=== PATIENT | male | born 1990 | race Caucasian/White ===

== ENCOUNTER 2023-01-18 02:20 | Inpatient (IN) | payer MEDICAID ==
[~2023-01-18] VITALS: Ht 152.4 cm; Wt 64.2 kg
[2023-01-18] MEDS ORDERED: MORPHINE SULFATE 4 MG/ML CPJ (NOT FOR IM USE) IV ONE (02:45)
[2023-01-18] MEDS ORDERED: ONDANSETRON HCL 4MG/2ML INJ IV ONE (02:45)
[2023-01-18] MEDS ORDERED: SODIUM CHLORIDE 0.9% 1,000 ML IV ONE (02:45)
[2023-01-18 04:10] LABS: CHLORIDE 106 mEq/L (98-107); INDEX HEMOLYSI 1 (1-3); INDEX ICTERIC 1 (1-4); INDEX LIPEMIC 1 (1-3); SODIUM 138 mEq/L (136-145)
[2023-01-18 04:11] LABS: BASOPHILS % 0.6 % (0.0-2.0); HEMATOCRIT. 24.3 % (42.0-52.0); HEMOGLOBIN. 7.5 g/dL (14.0-18.0); LYMPHOCYTES % 10.9 % (20.0-50.0); MEAN CORPUSCULAR HEMOGLOBIN 25.4 pg (28.0-32.0); MEAN CORPUSCULAR HGB CONC 30.8 g/dL (31.0-37.0); MEAN CORPUSCULAR VOLUME 82.4 fL (80.0-94.0); MEAN PLATELET VOLUME 7.6 fl (7.4-10.4); MONOCYTES % 3.7 % (2.0-8.0); NEUTROPHILS % 79.8 % (40.0-76.0); PLATELET 508 x1000/uL (130-400); RED BLOOD CELL COUNT 2.96 mill/uL (4.7-6.1); RED CELL DISTRIBUTION WIDTH 17.5 % (11.6-14.6); WHITE BLOOD COUNT 16.4 x1000/uL (4.5-11.0)
[2023-01-18 04:16] LABS: ALANINE AMINOTRANSFERASE 24 IU/L (13-61); ALBUMIN 2.1 g/dL (3.4-5.0); ASPARTATE AMINOTRANSFERASE 13 IU/L (15-37); BILIRUBIN TOTAL 0.4 mg/dL (0.1-1.0); CALCIUM 8.1 mg/dL (8.5-10.1); CARBON DIOXIDE 24 mEq/L (21-32); CREATININE 0.6 mg/dL (0.6-1.3); GLUCOSE 128 mg/dL (70-105); PROTEIN TOTAL 7.2 g/dL (6.0-8.3); UREA NITROGEN BLOOD 9 mg/dL (7-21)
[2023-01-18] MEDS ORDERED: ACETAMINOPHEN 325MG TABLET PO NR (04:45)
[2023-01-18 04:46] LABS: TROPONIN I HIGH SENSITIVITY < 4 ng/L (<78)
[2023-01-18] MEDS ORDERED: ONDANSETRON HCL 4MG/2ML INJ IV NR (06:00)
[2023-01-18] MEDS ORDERED: PIPERACILLIN/TAZOBACTAM 3.375GM/50ML PREMIX IV NR (06:00)
[2023-01-18] MEDS ORDERED: MORPHINE SULFATE 4 MG/ML CPJ (NOT FOR IM USE) IV NR (06:00)
[2023-01-18] MEDS ORDERED: VANCOMYCIN 1G PREMIX 200 ML IV NR (06:00)
[2023-01-18] MEDS ORDERED: SODIUM CHLORIDE 0.9% 1,000 ML IV NR (06:15)
[2023-01-18 14:17] VITALS: BP 107/64; PULSE 109; RESP 16; TEMP 98
[2023-01-18 15:10] VITALS: BP 107/74; PULSE 80; RESP 20; TEMP 98
[2023-01-18] MEDS ORDERED: NALOXONE HCL 0.4MG/ML VIAL IV PRN (15:15)
[2023-01-18] MEDS ORDERED: CEFTRIAXONE 1GM PREMIX 50 ML IV NR (16:00)
[2023-01-18] MEDS ORDERED: CEFTRIAXONE 1,000 MG in DEXTROSE 5% WATER 50 ML IV NR (16:30)
[2023-01-18] MEDS: HYDROMORPHONE HCL/PF 2MG/ML CPJ IV PRN ×2 (16:35→21:40)
[2023-01-18 20:00] VITALS: BP 103/56; PULSE 112; RESP 21; TEMP 97.3
[2023-01-18] MEDS ORDERED: IPRATROPIUM/ALBUTEROL 0.5-3(2.5)MG/3ML NEB NEB PRN (22:45)
[2023-01-18] MEDS ORDERED: ACETAMINOPHEN 325MG TABLET PO PRN (22:45)
[2023-01-18] MEDS ORDERED: HYDROCODONE/ACETAMINOPHEN 10/325MG TABLET PO PRN (22:45)
[2023-01-18] MEDS ORDERED: LORAZEPAM 2MG/ML CPJ IV PRN (22:45)
[2023-01-18] MEDS ORDERED: MORPHINE SULFATE 2 MG/ML CPJ (NOT FOR IM USE) IV PRN (22:45)
[2023-01-18] MEDS ORDERED: CEFTRIAXONE 1GM PREMIX 50 ML IV SCH (22:45)
[2023-01-18] MEDS ORDERED: AZITHROMYCIN 500 MG in DEXT 5% WATER 250 ML IV SCH (23:30)
[2023-01-19] VITALS (10 sets, daily range): BP systolic 104–111; BP diastolic 53–64; PULSE 106–117; RESP 16–22; TEMP 97.4–99.1
[2023-01-19] MEDS: HYDROMORPHONE HCL/PF 2MG/ML CPJ IV PRN ×4 (02:09→23:17)
[2023-01-19 06:04] LABS: BASOPHILS % 0.9 % (0.0-2.0); DIFFERENTIAL COMMENT 0; EOSINOPHILS % 8.8 % (0.0-5.0); HEMATOCRIT. 21.4 % (42.0-52.0); MEAN CORPUSCULAR HEMOGLOBIN 25.5 pg (28.0-32.0); MEAN CORPUSCULAR HGB CONC 31.5 g/dL (31.0-37.0); MEAN PLATELET VOLUME 7.5 fl (7.4-10.4); MONOCYTES % 2.6 % (2.0-8.0); NEUTROPHILS % 75.7 % (40.0-76.0); PLATELET 415 x1000/uL (130-400); RED BLOOD CELL COUNT 2.64 mill/uL (4.7-6.1); WHITE BLOOD COUNT 11.3 x1000/uL (4.5-11.0)
[2023-01-19 06:22] LABS: CHLORIDE 101 mEq/L (98-107); INDEX HEMOLYSI 1 (1-3); INDEX ICTERIC 1 (1-4); INDEX LIPEMIC 1 (1-3); POTASSIUM 4.2 mEq/L (3.5-5.1); SODIUM 131 mEq/L (136-145)
[2023-01-19 06:31] LABS: CALCIUM 7.9 mg/dL (8.5-10.1); CARBON DIOXIDE 24 mEq/L (21-32); CREATININE 0.5 mg/dL (0.6-1.3); GLUCOSE 104 mg/dL (70-105); UREA NITROGEN BLOOD 9 mg/dL (7-21)
[2023-01-19 06:36] LABS: HEMOGLOBIN. 6.8 g/dL (14.0-18.0)
[2023-01-19] MEDS: FOLIC ACID 1MG TABLET PO SCH (08:26)
[2023-01-19] MEDS: HYDROMORPHONE HCL 2MG TABLET PO SCH ×2 (13:31→18:00)
[2023-01-19] MEDS: LACTULOSE 20G/30ML UDC PO SCH ×2 (15:12→23:16)
[2023-01-19] MEDS: SODIUM CHLORIDE 0.9% 1,000 ML IV SCH ×2 (15:12→23:17)
[2023-01-19] MEDS ORDERED: CEFTRIAXONE 1,000 MG in DEXTROSE 5% WATER 50 ML IV SCH (16:00)
[2023-01-19] MEDS ORDERED: VANCOMYCIN 1.25GM PMX (XELLIA) 250 ML IV NR (17:00)
[2023-01-19] MEDS: ONDANSETRON HCL 4MG/2ML INJ IV PRN (17:18)
[2023-01-19] MEDS: PIPERACILLIN/TAZOBACTAM 3.375 G in DEXTROSE 5% WATER 50 ML IV SCH (23:18)
[2023-01-20] VITALS: BP 94/57; PULSE 108; RESP 17; TEMP 98.5
[2023-01-20 01:33] LABS: CLARITY URINE CLEAR (CLEAR); COLOR URINE YELLOW (YELLOW); GLUCOSE URINE NEGATIVE (NEGATIVE); KETONES URINE NEGATIVE (NEGATIVE); LEUKOCYTE ESTERASE URINE NEGATIVE (NEGATIVE); NITRITE URINE NEGATIVE (NEGATIVE); OCCULT BLOOD URINE NEGATIVE (NEGATIVE); PH URINE 7.5 (4.5-8.0); PROTEIN URINE NEGATIVE (NEGATIVE); SPECIFIC GRAVITY URINE 1.009 (1.005-1.030)
[2023-01-20 04:00] VITALS: BP 97/61; PULSE 110; RESP 20; TEMP 98.6
[2023-01-20] MEDS: HYDROMORPHONE HCL/PF 2MG/ML CPJ IV PRN ×5 (04:27→22:06)
[2023-01-20] MEDS: LACTULOSE 20G/30ML UDC PO SCH ×3 (06:00→22:00)
[2023-01-20] MEDS ORDERED: VANCOMYCIN 1G PREMIX 200 ML IV SCH (06:00)
[2023-01-20] MEDS: HYDROMORPHONE HCL 2MG TABLET PO SCH ×4 (06:31→18:00)
[2023-01-20] MEDS: PIPERACILLIN/TAZOBACTAM 3.375 G in DEXTROSE 5% WATER 50 ML IV SCH ×2 (06:31→14:06)
[2023-01-20 07:36] LABS: CHLORIDE 103 mEq/L (98-107); INDEX HEMOLYSI 1 (1-3); INDEX ICTERIC 1 (1-4); INDEX LIPEMIC 1 (1-3); POTASSIUM 3.9 mEq/L (3.5-5.1); SODIUM 133 mEq/L (136-145)
[2023-01-20 07:41] LABS: CARBON DIOXIDE 21 mEq/L (21-32); CREATININE 0.5 mg/dL (0.6-1.3); GLUCOSE 121 mg/dL (70-105); UREA NITROGEN BLOOD 6 mg/dL (7-21)
[2023-01-20 07:50] LABS: BASOPHILS % 0.8 % (0.0-2.0); EOSINOPHILS % 7.2 % (0.0-5.0); HEMATOCRIT. 24.5 % (42.0-52.0); MEAN CORPUSCULAR HEMOGLOBIN 26.7 pg (28.0-32.0); MEAN CORPUSCULAR HGB CONC 32.7 g/dL (31.0-37.0); MEAN CORPUSCULAR VOLUME 81.5 fL (80.0-94.0); MEAN PLATELET VOLUME 7.6 fl (7.4-10.4); MONOCYTES % 5.1 % (2.0-8.0); NEUTROPHILS % 75.9 % (40.0-76.0); PLATELET 360 x1000/uL (130-400); RED BLOOD CELL COUNT 3.01 mill/uL (4.7-6.1); RED CELL DISTRIBUTION WIDTH 17.5 % (11.6-14.6); WHITE BLOOD COUNT 9.9 x1000/uL (4.5-11.0)
[2023-01-20 08:00] VITALS: BP 105/65; PULSE 103; RESP 21; TEMP 97.9
[2023-01-20] MEDS: FOLIC ACID 1MG TABLET PO SCH (08:34)
[2023-01-20] MEDS: SODIUM CHLORIDE 0.9% 1,000 ML IV SCH ×2 (08:36→22:00)
[2023-01-20] MEDS ORDERED: IOHEXOL-350 100 ML BOTTLE ONE (11:33)
[2023-01-20 12:00] VITALS: BP 101/56; PULSE 106; RESP 22; TEMP 98.1
[2023-01-20 16:00] VITALS: BP 107/64; PULSE 111; RESP 22; TEMP 98.3
[2023-01-20] MEDS: ONDANSETRON HCL 4MG/2ML INJ IV PRN (17:59)
[2023-01-20 20:00] VITALS: BP 108/60; PULSE 110; RESP 16; TEMP 98.3
[2023-01-20] MEDS: VANCOMYCIN 1.25GM PMX (XELLIA) 250 ML IV SCH (22:07)
[2023-01-21] VITALS: BP 104/64; PULSE 113; RESP 19; TEMP 99.5
[2023-01-21] MEDS: PIPERACILLIN/TAZOBACTAM 3.375 G in DEXTROSE 5% WATER 50 ML IV SCH ×4 (00:03→22:28)
[2023-01-21] MEDS: HYDROMORPHONE HCL/PF 2MG/ML CPJ IV PRN ×6 (01:54→21:14)
[2023-01-21 04:00] VITALS: BP 110/60; PULSE 104; RESP 22; TEMP 99.3
[2023-01-21] MEDS: SODIUM CHLORIDE 0.9% 1,000 ML IV SCH ×2 (04:41→17:38)
[2023-01-21] MEDS: LACTULOSE 20G/30ML UDC PO SCH ×3 (06:00→22:28)
[2023-01-21] MEDS: HYDROMORPHONE HCL 2MG TABLET PO SCH ×2 (06:00)
[2023-01-21 07:41] LABS: CHLORIDE 99 mEq/L (98-107); INDEX HEMOLYSI 1 (1-3); INDEX ICTERIC 1 (1-4); INDEX LIPEMIC 1 (1-3); POTASSIUM 3.9 mEq/L (3.5-5.1); SODIUM 132 mEq/L (136-145)
[2023-01-21 07:49] LABS: CARBON DIOXIDE 24 mEq/L (21-32); CREATININE 0.5 mg/dL (0.6-1.3); GLUCOSE 98 mg/dL (70-105); UREA NITROGEN BLOOD 5 mg/dL (7-21)
[2023-01-21 08:00] VITALS: BP 112/66; PULSE 113; RESP 16; TEMP 98.5
[2023-01-21] MEDS: FOLIC ACID 1MG TABLET PO SCH (08:50)
[2023-01-21] MEDS: VANCOMYCIN 1.25GM PMX (XELLIA) 250 ML IV SCH (08:50)
[2023-01-21 12:00] VITALS: BP 110/62; PULSE 106; RESP 16; TEMP 98.6
[2023-01-21 16:00] VITALS: BP 110/66; PULSE 112; RESP 21; TEMP 98.7
[2023-01-21] MEDS: VANCOMYCIN 750MG PREMIX 150 ML IV SCH (21:05)
[2023-01-22] VITALS (9 sets, daily range): BP systolic 102–116; BP diastolic 57–74; PULSE 105–118; RESP 16–27; TEMP 98.2–99.6
[2023-01-22] MEDS: HYDROMORPHONE HCL/PF 2MG/ML CPJ IV PRN ×8 (00:25→21:23)
[2023-01-22] MEDS: SODIUM CHLORIDE 0.9% 1,000 ML IV SCH ×2 (00:45→12:51)
[2023-01-22] MEDS: VANCOMYCIN 750MG PREMIX 150 ML IV SCH ×3 (06:42→22:52)
[2023-01-22] MEDS: LACTULOSE 20G/30ML UDC PO SCH ×3 (06:42→22:00)
[2023-01-22] MEDS: PIPERACILLIN/TAZOBACTAM 3.375 G in DEXTROSE 5% WATER 50 ML IV SCH ×3 (06:49→21:22)
[2023-01-22 07:36] LABS: INDEX HEMOLYSI 1 (1-3); INDEX ICTERIC 1 (1-4); INDEX LIPEMIC 1 (1-3)
[2023-01-22 07:38] LABS: IRON 61 ug/dL (50-175); TOTAL IRON BINDING CAPACITY 182 ug/dL (250-450)
[2023-01-22 08:08] LABS: INDEX HEMOLYSI 1 (1-3)
[2023-01-22 08:53] LABS: VITAMIN B12 SERUM > 2000.0 pg/mL (211-911)
[2023-01-22] MEDS: FOLIC ACID 1MG TABLET PO SCH (09:19)
[2023-01-22 10:45] LABS: FERRITIN 506 ng/mL (22-322)
[2023-01-22] MEDS: ONDANSETRON HCL 4MG/2ML INJ IV PRN ×2 (12:52→21:22)
[2023-01-22 13:11] LABS: BASOPHILS % 0.6 % (0.0-2.0); EOSINOPHILS % 7.5 % (0.0-5.0); HEMATOCRIT. 24.5 % (42.0-52.0); LYMPHOCYTES % 10.7 % (20.0-50.0); MEAN CORPUSCULAR HEMOGLOBIN 26.5 pg (28.0-32.0); MEAN CORPUSCULAR HGB CONC 32.6 g/dL (31.0-37.0); MEAN CORPUSCULAR VOLUME 81.4 fL (80.0-94.0); MEAN PLATELET VOLUME 7.4 fl (7.4-10.4); MONOCYTES % 7.9 % (2.0-8.0); NEUTROPHILS % 73.3 % (40.0-76.0); PLATELET 283 x1000/uL (130-400); RED BLOOD CELL COUNT 3.02 mill/uL (4.7-6.1); RED CELL DISTRIBUTION WIDTH 17.1 % (11.6-14.6); WHITE BLOOD COUNT 9.9 x1000/uL (4.5-11.0)
[2023-01-22] MEDS ORDERED: HYDR2TAB4 PO (14:11)
[2023-01-23] VITALS (7 sets, daily range): BP systolic 102–125; BP diastolic 60–78; PULSE 113–120; RESP 14–20; TEMP 98.6–99.2; O2SAT 98
[2023-01-23] MEDS: HYDROMORPHONE HCL/PF 2MG/ML CPJ IV PRN ×5 (00:52→14:00)
[2023-01-23] MEDS: LACTULOSE 20G/30ML UDC PO SCH ×2 (06:36→15:51)
[2023-01-23] MEDS: VANCOMYCIN 750MG PREMIX 150 ML IV SCH (06:37)
[2023-01-23] MEDS: PIPERACILLIN/TAZOBACTAM 3.375 G in DEXTROSE 5% WATER 50 ML IV SCH (06:52)
[2023-01-23] MEDS: FOLIC ACID 1MG TABLET PO SCH (09:28)
[2023-01-23] MEDS ORDERED: THROAT LOZENGES-BENZOCAINE/MENTH/CETYLPYRD CL LOZENGES MM PRN (12:30)
== END 2023-01-23 15:55 | disposition home or self-care (01) | DRG 720 ==
LOC: ER 03:05 → 3WST 06:08
PROVIDERS: ADMIT Internal Medicine Nephrology; ATTEND Internal Medicine Nephrology
PROC: 30233N1 Transfusion of Nonautologous Red Blood Cells into Peripheral Vein, Percutaneous Approach (ICD-10-PCS; principal; 2023-01-19)
DX: A41.9 Sepsis, unspecified organism (principal); J18.9 Pneumonia, unspecified organism; C79.51 Secondary malignant neoplasm of bone; D63.8 Anemia in other chronic diseases classified elsewhere; K56.7 Ileus, unspecified; C34.90 Malignant neoplasm of unspecified part of unspecified bronchus or lung; D64.9 Anemia, unspecified; G89.29 Other chronic pain; F41.9 Anxiety disorder, unspecified; Z92.21 Personal history of antineoplastic chemotherapy; Z92.3 Personal history of irradiation
CPT/HCPCS: 36415; 71045; 71275; 74018; 74174; 80048; 80053; 80202; 81003; 82607; 82728; 82746; 83540; 83550; 83605; 83735; 84145; 84484; 85025; 86850; 86900; 86920; 93005; 99291; J0456; J0696; J1170; J2270; J2405; J2543; J3370; J7030; J7060; P9016; Q9967